=== PATIENT | male | born 1950 | race Caucasian/White ===

== ENCOUNTER 2016-03-29 07:15 | Emergency (ER) | payer MEDICARE ==
[2016-03-29] MEDS ORDERED: Zofran 4 MG/2 ML VIAL IV ONE (07:27)
[2016-03-29] MEDS ORDERED: TORAdol 30 mg Injection IV ONE (07:27)
[2016-03-29] MEDS ORDERED: Sodium Chloride 0.9% 1000 ML 1,000 ML IV SCH (07:30)
--- NOTE | 2016-03-29 07:43 | ERPHSYRPT ---
- History of Present Illness Time Seen by Provider: 03/29/16 07:15 Historian: patient, family (wifew), old records Exam Limitations: no limitations Patient Subjective Stated Complaint: sudden left flank pain this morning, nausea not vomiting. denies pain with urination, clammy Triage Nursing Assessment: pt alert and in no distress, resp easy, skin w/d pale Physician History: patient developed sudden onset left flank pain about 1 hr ago. some nausea but no emesis. pain radiates to left groin; at onst 10/10 but now 6/10; chills but no fever; no voiding since; no hematuria; no prior hz; otherwise healthy; no other complaints; at bedside Timing/Duration: today, hour(s) (1), sudden, improved Activities at Onset: rest Quality: sharpness Abdominal Pain Onset Location: flank (left) Pain Radiation: groin (left) Severity of Pain-Max: severe Severity of Pain-Current: moderate Modifying Factors: Improves With: nothing Associated Symptoms: nausea Previous symptoms: no prior history Allergies/Adverse Reactions: No Known Drug Allergies Allergy (Verified 03/29/16 07:23) Home Medications: Aspirin [Aspirin EC] 81 mg PO DAILY 10/07/15 [History] Atorvastatin Calcium [Lipitor 20MG Tablet] 20 mg PO DAILY 10/07/15 [History] Hx Influenza Vaccination/Date Given: No Hx Pneumococcal Vaccination/Date Given: No Immunizations Up to Date: Yes - Review of Systems Constitutional: Chills, No Night Sweats, No Weight Loss Eyes: No Symptoms Ears, Nose, & Throat: No Symptoms Respiratory: No Cough, No Dyspnea, No Wheezing Cardiac: No Chest Pain, No Palpitations, No Syncope Abdominal/Gastrointestinal: Nausea, No Abdominal Pain, No Vomiting, No Diarrhea , No Constipation Genitourinary Symptoms: Flank Pain, No Dysuria, No Frequency, No Hematuria, No Urgency, No Urinary Retention, No Testicle Pain Musculoskeletal: Back Pain, No Arthralgias, No Injury, No Joint Pain Skin: No Symptoms Neurological: No Symptoms Psychological: No Symptoms Endocrine: No Symptoms Hematologic/Lymphatic: No Symptoms Immunological/Allergic: No Symptoms - Past Medical History Pertinent Past Medical History: Yes Neurological History: No Pertinent History ENT History: No Pertinent History Cardiac History: High Cholesterol Respiratory History: No Pertinent History Endocrine Medical History: No Pertinent History Musculoskeletal History: No Pertinent History GI Medical History: No Pertinent History History: No Pertinent History Psycho-Social History: No Pertinent History Male Reproductive Disorders: No Pertinent History - Past Surgical History Past Surgical History: Yes Neuro Surgical History: No Pertinent History Cardiac: No Pertinent History Respiratory: No Pertinent History Gastrointestinal: No Pertinent History Genitourinary: No Pertinent History Musculoskeletal: No Pertinent History Male Surgical History: No Pertinent History Other Surgical History: tonsils - Social History Smoking Status: Never smoker Exposure to second hand smoke: No Drug Use: none Patient Lives Alone: No Significant Family History: no pertinent family hx - Nursing Vital Signs Nursing Vital Signs: Initial Vital Signs Temperature 97.4 F Temperature Source Oral Pulse Rate 63 Respiratory Rate 18 Blood Pressure [] 130/78 Pain Intensity 0 - Physical Exam General Appearance: moderate distress, alert, thin Eye Exam: PERRL/EOMI, eyes nml inspection, No photophobia Ears, Nose, Throat Exam: normal ENT inspection, TMs normal, pharynx normal, moist mucous membranes Neck Exam: normal inspection, non-tender, supple, full range of motion, No meningismus, No JVD Respiratory Exam: normal breath sounds, lungs clear, airway intact, No chest tenderness, No respiratory distress, No rhonchi, No wheezing Cardiovascular Exam: regular rate/rhythm, normal heart sounds, normal peripheral pulses, capillary refill <2 sec, No murmur Gastrointestinal/Abdomen Exam: soft, normal bowel sounds, No tenderness, No distention, No guarding, No pulsatile mass, No rebound, No organomegaly Male Genitalia Exam: normal genitalia Rectal Exam: deferred Back Exam: normal inspection, normal range of motion, No CVA tenderness Extremity Exam: normal inspection, normal range of motion, pelvis stable, No tristan's sign, No pedal edema Neurologic Exam: alert, oriented x 3, cooperative, pipe cleaner II-XII nml as tested, normal mood/affect, nml cerebellar function, nml station & gait Skin Exam: normal color, warm, No dry (clammy), No rash SpO2 Interpretation: normal SpO2: 97 Oxygen Delivery: Room Air - Course Nursing assessment & vital signs reviewed: Yes - CT Exams Abdomen/Pelvis CT Interpretation: Other (mild hydronephrosis left with suspect distal left ureter stone) Ordered Tests: Active Orders 24 hr Category Date Time Status IV Insertion STAT Care 03/29/16 07:27 Active NPO (ED) STAT Care 03/29/16 07:27 Active Re-Check Vital Signs STAT Care 03/29/16 07:27 Completed ABDOMEN AND PELVIS W/0 CONTRAS [CT] Stat Exams 03/29/16 07:27 Completed CBC W DIFF Stat Lab 03/29/16 07:35 Completed CMP Stat Lab 03/29/16 07:35 Completed UA Stat Lab 03/29/16 07:27 Ordered Medication Summary Generic Name Dose Route Start Last Admin Trade Name Freq PRN Reason Stop Dose Admin Sodium Chloride 1,000 mls @ 100 mls/hr 03/29/16 07:30 03/29/16 08:10 Sodium Chloride 0.9% 1000 Ml IV 04/28/16 07:29 100 mls/hr .Q10H JOSE JUAN Administration Discontinued Medications Generic Name Dose Route Start Last Admin Trade Name Freq PRN Reason Stop Dose Admin Hydromorphone HCl Confirm 03/29/16 07:53 Hydromorphone 1 Mg/Ml Ampule Administered 03/29/16 07:54 Dose 1 mg .ROUTE .STK-MED ONE Hydromorphone HCl 1 mg 03/29/16 08:03 03/29/16 08:10 Hydromorphone 1 Mg/Ml Ampule IV 03/29/16 08:04 1 mg STAT ONE Administration Sodium Chloride Confirm 03/29/16 07:53 Sodium Chloride 0.9% 1000 Ml Administered 03/29/16 07:54 Dose 1,000 mls @ ud .ROUTE .STK-MED ONE Ketorolac Tromethamine 30 mg 03/29/16 07:27 03/29/16 08:09 Toradol 30 Mg Injection IV 03/29/16 07:28 30 mg STAT ONE Administration Ketorolac Tromethamine Confirm 03/29/16 07:53 Toradol 30 Mg Injection Administered 03/29/16 07:54 Dose 30 mg .ROUTE .STK-MED ONE Ondansetron HCl 4 mg 03/29/16 07:27 03/29/16 08:09 Zofran 4 Mg/2 Ml Vial IV 03/29/16 07:28 4 mg STAT ONE Administration Ondansetron HCl Confirm 03/29/16 07:53 Zofran 4 Mg/2 Ml Vial Administered 03/29/16 07:54 Dose 4 mg .ROUTE .STK-MED ONE Lab/Rad Data: Laboratory Result Diagrams 03/29/16 07:35 03/29/16 07:35 Laboratory Results 03/29/16 03/29/16 Range/Units 07:35 07:35 WBC 4.6 (4.0-10.5) K/mm3 RBC 5.02 (4.1-5.6) M/mm3 Hgb 15.5 (12.5-18.0) gm/dl Hct 46.0 (42-50) % MCV 91.6 (78-100) fl MCH 30.9 (26-32) pg MCHC 33.7 (32-36) g/dl RDW 13.4 (11.5-14.0) % Plt Count 186 (150-450) K/mm3 MPV 10.6 H (6-9.5) fl Gran % 53.3 (36.0-66.0) % Lymphocytes % 30.5 (24.0-44.0) % Monocytes % 11.9 (0.0-12.0) % Eosinophils % 4.1 (0.00-5.0) % Basophils % 0.2 (0.0-0.4) % Basophils # 0.01 (0-0.4) Sodium 142 (136-145) mEq/L Potassium 4.7 (3.5-5.1) mEq/L Chloride 105 (98-107) mEq/L Carbon Dioxide 26.9 (21-32) mEq/L Anion Gap 14.3 (5-15) MEQ/L BUN 17 (9-20) mg/dL Creatinine 1.44 H (0.55-1.30) mg/dl Estimated GFR 52 ML/MIN Glucose 137 H (70-110) MG/DL Calcium 8.8 (8.5-10.1) mg/dL Total Bilirubin 0.5 (0.2-1.0) mg/dL AST 22 (15-37) U/L ALT 21 (12-78) U/L Alkaline Phosphatase 63 (46-116) U/L Serum Total Protein 7.4 (6.4-8.2) gm/dL Albumin 3.8 (3.4-5.0) g/dL reviewed - Progress Progress: improved (after second dose of meds), re-examined (after meds and ct) Progress Note: 03/29/16 07:45 at bedside; iv started; meds given; labs and ct pending; will recheck after ct 03/29/16 08:[address]; pain returning; will medicate and rrecheck; CBC ok; at bedside; CT s;uspect left ureteral stone distal with mild hydro on left; will recheck; other labs pending 03/29/16 08:17 recheck and patient now resting comfortably; no pain ; no N&V; pain 0/10; vs ok ; labs and official CT report pending 03/29/16 08:57 recheck and patient remains pain free and wants to go home; official results of CT and labs shared. treatment plan discussed; will follow up with LMD; instructions given Will see patient in: office Counseled pt/family regarding: lab results, diagnosis, need for follow-up, rad results - Departure Time of Disposition: 08:58 Departure Disposition: Home Clinical Impression: Renal colic on left side Condition: Stable Critical Care Time: No Referrals: LIZETTE APODACA [Primary Care Provider] - Instructions: Kidney Stones Additional Instructions: strain urine; rest; push fluids; call lmd for follow up recheck 48-72 hours Follow-up with family doctor as directed. Call for appointment. Return if any problems. If you smoke please stop. Call or follow up with your family doctor for assistance if you need it to stop. Please wear your seatbelt when driving. Have a nice day. Thank you for allowing us to participate in your care today. :o) Dr Derrick Mahmood Prescriptions: Hydrocodone/Ibuprofen [Vicoprofen 200-7.5 mg Tab] 1 each PO Q4-6HPRN PRN #14 tablet PRN Reason: Pain Ondansetron [Zofran Odt] 4 mg PO Q6-8HPRN PRN #10 tab.rapdis PRN Reason: Nausea
[2016-03-29 07:51] LABS: BASOPHIL % 0.2 % (0.0-0.4); Eosinophil % 4.1 % (0.00-5.0); Granulocytes % 53.3 % (36.0-66.0); Lymphocytes % 30.5 % (24.0-44.0); Mean Cell Volume 91.6 fl (78-100); Mean Corpuscular Hemoglobin 30.9 pg (26-32); Mean Platelet Volume 10.6 fl (6-9.5); Monocytes % 11.9 % (0.0-12.0); Platelet Count 186 K/mm3 (150-450); Red Blood Count 5.02 M/mm3 (4.1-5.6); Red Cell Distribution Width 13.4 % (11.5-14.0); White Blood Count 4.6 K/mm3 (4.0-10.5)
[2016-03-29] MEDS ORDERED: Zofran 4 MG/2 ML VIAL ONE (07:53)
[2016-03-29] MEDS ORDERED: Sodium Chloride 0.9% 1000 ML 1,000 ML ONE (07:53)
[2016-03-29] MEDS ORDERED: Hydromorphone 1 mg/ml Ampule ONE (07:53)
[2016-03-29] MEDS ORDERED: TORAdol 30 mg Injection ONE (07:53)
[2016-03-29] MEDS ORDERED: Hydromorphone 1 mg/ml Ampule IV ONE (08:03)
[2016-03-29 08:34] LABS: ALBUMIN 3.8 g/dL (3.4-5.0); ANION GAP 14.3 MEQ/L (5-15); BILIRUBIN,TOTAL 0.5 mg/dL (0.2-1.0); Carbon Dioxide 26.9 mEq/L (21-32); Potassium 4.7 mEq/L (3.5-5.1); Total Protein 7.4 gm/dL (6.4-8.2)
--- NOTE | 2016-03-29 08:38 | XRAY ---
Indication: Left flank pain. Multiple contiguous axial images obtained through the abdomen and pelvis without contrast using renal stone protocol. Comparison: May 30, 2009 Lung bases demonstrates mild bibasilar dependent atelectasis. Heart is not enlarged. New small hiatal hernia. 2 mm distal left ureteral calculus just proximal to the UVJ. Proximal left ureter slightly prominent along with mild hydronephrosis consistent with partial obstruction. No perinephric fluid. No renal calculus or evidence for obstructive uropathy in the right system. Noncontrasted stomach and bowel loops appear nonobstructed. Again moderate scattered colonic fecal debris throughout. Normal appendix. Remaining liver, gallbladder, pancreas, spleen, adrenal glands, kidneys, ureters, and bladder appear unremarkable for noncontrast exam. Again minimal aortoiliac calcifications without AAA. Stable 2 cm ectatic right common iliac artery. Osseous structures intact again with lower lumbar degenerative changes and partially visualized pectus excavatum deformity. Impression: 1. New 2 mm distal left ureteral calculus producing partial obstruction as detailed. 2. New small hiatal hernia. 3. Again fecal stasis without obstruction. CT DI 22.49
[2016-03-29 09:06] VITALS: BP 120/68; PULSE 72; O2SAT 98
== END 2016-03-29 09:15 | disposition home or self-care (01) ==
LOC: ED 07:15
DX: N20.0 Calculus of kidney (principal); R11.0 Nausea
CPT/HCPCS: 36000; 36415; 74176; 80053; 85025; 96360; 96374; 96375; 99283; 99284; 99285; J1170; J1885; J2405